=== PATIENT | female | born 1980 | race American Indian/Alaskan Native ===

== ENCOUNTER 2020-03-16 01:13 | Emergency (ER) | payer BC ==
[~2020-03-16] VITALS: Ht 167.6 cm; Wt 108.9 kg
[2020-03-16] MEDS ORDERED: AUGMENTIN 875-1 EACH PO (03:21)
[2020-03-16] MEDS ORDERED: NORCO 5-325 TA1 EACH PO (03:21)
== END 2020-03-16 03:45 | disposition home or self-care (01) ==
LOC: ED 01:13
DX: N75.0 Cyst of Bartholin's gland (principal); F17.200 Nicotine dependence, unspecified, uncomplicated; Z88.8 Allergy status to other drugs, medicaments and biological substances
CPT/HCPCS: 56420; 99282-25

== ENCOUNTER 2022-07-01 14:03 | Emergency (ER) | payer BC ==
[~2022-07-01] VITALS: Ht 167.6 cm; Wt 108.9 kg
[~2022-07-01 14:03] MED LIST: AUGMENTIN 875-1 EACH PO; NORCO 5-325 TA1 EACH PO
[2022-07-01] MEDS ORDERED: METHOCARBAMOL750 MG PO (15:40)
[2022-07-01] MEDS ORDERED: LIDODERM1 EACH TOP (15:40)
== END 2022-07-01 16:16 | disposition home or self-care (01) ==
LOC: ED 14:03
DX: S39.012A Strain of muscle, fascia and tendon of lower back, initial encounter (principal); X50.1XXA Overexertion from prolonged static or awkward postures, initial encounter; F17.200 Nicotine dependence, unspecified, uncomplicated; Z91.011 Allergy to milk products; Z79.899 Other long term (current) drug therapy
CPT/HCPCS: 96372; 99283; A9270; J1885